=== PATIENT | male | born 1960 | race Caucasian/White ===

== ENCOUNTER 2016-02-28 07:47 | Day surgery (SDC) | payer BC ==
[2016-02-24 12:43] VITALS: BMI 29.8
[2016-02-28 10:31] VITALS: PULSE 77
[2016-02-28 11:08] VITALS: BP 131/65; TEMP 98.2
--- NOTE | 2016-03-02 15:55 | PATH ---
Surgical Pathology Report Patient Name: JUN HARGROVE [facility]. Rec. #: [id number] /Age/Gender: 1960 (Age: 56) / M Account: [id number] Location: [facility] Taken: 02/28/2016 Received: 02/28/2016 Reported: 03/02/2016 Physicians: Joi Marrero M.D. Specimen(s) Received A: BX COLON ASCENDING B: BX COLON DESCENDING C: BX RECTUM Clinical History History of polyps Diminutive polyp, polyp Final Diagnosis A. ASCENDING COLON, BIOPSY: TUBULAR ADENOMA. B. DESCENDING COLON, BIOPSY: TUBULOVILLOUS ADENOMA. C. RECTUM, BIOPSY: HYPERPLASTIC POLYP. Electronically Signed Charito Espinosa M.D. Gross Description A. Received in formalin, labeled "ascending" is a james, irregular portion of soft tissue measuring 0.3 cm. in greatest dimension. The specimen is submitted in toto in one cassette. B. Received in formalin, labeled "descending," is a 0.8 x 0.8 x 0.2 cm aggregate of james, irregular to polypoid portions of soft tissue. The formalin is filtered and the specimen is entirely submitted in one cassette. C. Received in formalin, labeled "rectum" are 5 james, irregular portions of soft tissue ranging from 0.1-0.3 cm. in greatest dimension. The specimens are submitted in toto in one cassette. 02/28/2016 saudi02/28/2016
== END 2016-02-28 10:15 | disposition home or self-care (01) ==
LOC: FASU-ENDO 07:47
PROVIDERS: ATTEND Internal Medicine
PROC: 0DBM8ZX Excision of Descending Colon, Via Natural or Artificial Opening Endoscopic, Diagnostic (ICD-10-PCS; principal; 2016-02-28 09:01)
PROC: 0DBP8ZX Excision of Rectum, Via Natural or Artificial Opening Endoscopic, Diagnostic (ICD-10-PCS; 2016-02-28 09:01)
PROC: 0DBK8ZX Excision of Ascending Colon, Via Natural or Artificial Opening Endoscopic, Diagnostic (ICD-10-PCS; 2016-02-28 09:01)
DX: Z86.010 Personal history of colon polyps (principal); D12.3 Benign neoplasm of transverse colon; D12.4 Benign neoplasm of descending colon; K62.1 Rectal polyp
CPT/HCPCS: 88305-TC

== ENCOUNTER 2018-12-13 14:27 | Emergency (ER) | payer BC ==
[2018-12-13 14:34] VITALS: TEMP 98.6; BMI 30.8
--- NOTE | 2018-12-13 14:37 | PDOC ---
History of Present Illness - General Chief Complaint: Back Pain Stated Complaint: LEFT FLANK/BACK PAIN Time Seen by Provider: 12/13/18 14:35 - History of Present Illness Initial Comments: 12/13/18 15:23 58 y/o M hx of NIDDM, anxiety, depression and kidney stones, presents to the ER with left flank pain since yesterday. He has had waxing and waning pain since yesterday which began last night. Pt states pain feels like his previous episode of kidney stones he experienced a few years ago. Rates his pain as 4/ 10 and is non-radiating. Pain was mildly relieved with ibuprofen yesterday and he experienced some chills with no fevers. He denies any dysuria, hematuria, abdominal pain/pain radiating to his groin. He denies any nausea, vomiting, diarrhea, constipation, fevers. 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) Disorders: No HTN: No Hypercholesterolemia: No Kidney Stones: Yes Liver Disease: No Seizures: No Thyroid Disease: No - Surgical History Abdominal Surgery: Yes (HERNIA OPERATION) Appendectomy: No Cardiac Surgery: No Cholecystectomy: No Lung Surgery: No Neurologic Surgery: No Orthopedic Surgery: Yes (ARTHROSCOPY Right Knee) - Psycho Social/Smoking Cessation Hx Smoking History: Former smoker Have you smoked in the past 12 months: No If you are a former smoker, when did you quit?: 10 YEARS Information on smoking cessation initiated: No Hx Alcohol Use: No Drug/Substance Use Hx: No Substance Use Type: None Hx Substance Use Treatment: No Review of Systems - Review of Systems Constitutional: Yes: Chills. No: Fever HEENTM: No: Eye Pain, Blurred Vision Respiratory: No: Cough, Shortness of Breath Cardiac (ROS): No: Chest Pain, Lightheadedness ABD/GI: No: Nausea, Vomiting : No: Burning, Dysuria, Hematuria Musculoskeletal: Yes: Back Pain. No: Joint Swelling Integumentary: No: Bruising, Change in Color Neurological: No: Headache, Numbness Psychiatric: Yes: Anxiety, Depression Hematologic/Lymphatic: No: Easy Bleeding, Easy Bruising *Physical Exam - Vital Signs Last Vital Signs Temp Pulse Resp BP Pulse Ox 98.6 F 96 H 18 172/102 H 100 12/13/18 14:27 12/13/18 14:27 12/13/18 14:27 12/13/18 14:27 12/13/18 14:27 - Physical Exam Comments: 12/13/18 14:51 PE: GENERAL: Awake, alert, and fully oriented, in no acute distress HEAD: No signs of trauma, normocephalic, atraumatic EYES: PERRLA, EOMI, sclera anicteric, conjunctiva clear ENT: Auricles normal inspection, hearing grossly normal, nares patent, oropharynx clear without exudates. Moist mucosa NECK: Normal ROM, supple, no lymphadenopathy, JVD, or masses LUNGS: No distress, speaks full sentences, clear to auscultation bilaterally HEART: Regular rate and rhythm, normal S1 and S2, no murmurs, rubs or gallops, peripheral pulses normal and equal bilaterally. ABDOMEN: Soft, nontender, normoactive bowel sounds. No guarding, no rebound. No masses no CVA tenderness EXTREMITIES : Normal inspection, Normal range of motion, no edema. No clubbing or cyanosis NEUROLOGICAL: Cranial nerves II through XII grossly intact. Normal speech, normal gait, no focal sensorimotor deficits SKIN: Warm, Dry, normal turgor, no rashes or lesions noted ED Treatment Course - LABORATORY CBC & Chemistry Diagram: 12/13/18 15:10 12/13/18 15:10 Medical Decision Making - Medical Decision Making 12/13/18 15:31 58 y/o M hx of NIDDM, anxiety, depression and kidney stones, presents to the ER with left flank pain since yesterday. cbc, cmp, ua with culture, Meds: toradol 30mg IV, normal saline 12/13/18 15:50 Labs trace blood on UA elevated creatinine 1.7 12/13/18 15:50 12/13/18 16:46 Pt feeling better after meds and fluids discharge with pcp follow up. Discharge - Discharge Information Problems reviewed: Yes Clinical Impression/Diagnosis: Left flank pain Condition: Stable Disposition: HOME - Admission No - Follow up/Referral Referrals: Danish Austin MD [Primary Care Provider] - - Patient Discharge Instructions Patient Printed Discharge Instructions: Kidney Stones -- Adult, DI for Flank Pain Additional Instructions: you were seen in the ER for left flank pain You were given medication and fluids You are being sent home with a strainer for your urine to catch any stones that might pass. if you pass a stone save in a ziploc bag and show your primary care doctor Follow up with your primary care doctor in the next few days. RETURN TO THE ER -you develop fevers or chills - burning with urination, blood in your urine - increased pain that is not relieved with ibuprofen at home -pain radiating to your groin. - Post Discharge Activity
--- NOTE | 2018-12-13 14:58 | PDOC ---
Attending Attestation - Resident Resident Name: Francis Goel - ED Attending Attestation I have performed the following: I have examined & evaluated the patient, The case was reviewed & discussed with the resident, I agree w/resident's findings & plan, Exceptions are as noted - HPI HPI: 12/13/18 14:54 58y M hx of NIDDM< anxiety, deperssion, kidney stones, presents to the ED with complaint of L flank pain since yesterday. Pain started all of a sudden last night and is waxing and waning and pt 'felt like he couldnt get comfortable'. pt notse pain was 7/10 las tnight and is now much better, approx 7/10. Pt denies any fever, dysuria, hematuria, foul smelling urine, back pain,a bd pain, testicular pain, numbness/tingling/weakness. pt notse this pain feels similar to the past when he had kidney stones. no recent falls/injuries. Physicial Exam GENERAL: The patient is awake, alert, and fully oriented, Nontoxic - in no acute distress. HEAD: Normocephalic, atraumatic. EYES: extraocular movements intact, sclera anicteric, conjunctiva clear. ENT: Normal voice, Moist mucous membranes. NECK: Normal range of motion, supple LUNGS: Breath sounds equal, clear to auscultation bilaterally. No wheezes, no rhonchi, no rales. HEART: Regular rate and rhythm, normal S1 and S2 without murmur, rub or gallop. ABDOMEN: Soft, nontender, No guarding, no rebound. No CVA tenderness EXTREMITIES: Normal range of motion, no edema. NEUROLOGICAL: No facial assymetry, Normal speech, PSYCH: Normal mood, normal affect. SKIN: Warm, Dry, normal turgor, 12/13/18 16:54 suspect kidney stones vs msk pts labs and UA reviewed no signs of UTI, trace hematuria pt feeling no pain after toradol will dc with pmd fu and a urine strainer return precuations were dsicussed
[2018-12-13] MEDS ORDERED: KETOROLAC TROMETHAMINE 30 MG/1 ML VIAL IVPUSH ONE (14:59)
[2018-12-13] MEDS ORDERED: SODIUM CHLORIDE 0.9% 500 ML INFUS.BAG IV ONE (14:59)
[2018-12-13] MEDS ORDERED: KETOROLAC TROMETHAMINE 30 MG/1 ML VIAL ONE (15:01)
[2018-12-13 15:31] LABS: BASO % 0.6 % (0-2.0); EOS % 1.3 % (0-4.5); HEMATOCRIT 42.9 % (35.4-49); HEMOGLOBIN 14.6 GM/dl (11.7-16.9); LYMPH % 18.5 % (8-40); MCH 28.2 pg (25.7-33.7); MEAN CELL VOLUME 83.1 fl (80-96); MEAN PLT VOLUME 8.1 fl (7.5-11.1); MONO % 9.2 % (3.8-10.2); NEUT % 70.4 % (42.8-82.8); PLATELET COUNT 226 K/MM3 (134-434); RBC 5.16 M/mm3 (4.00-5.60); RDW 12.5 % (11.9-15.9)
[2018-12-13 15:42] LABS: ALBUMIN 3.6 g/dl (3.4-5.0); BILIRUBIN,TOTAL 0.7 mg/dl (0.2-1); CALCIUM 8.5 mg/dl (8.5-10); CREATININE 1.7 mg/dl (0.55-1.3); POTASSIUM 4.3 mmol/L (3.5-5.1); TOT PROT 6.5 g/dl (6.4-8.2)
[2018-12-13 17:02] VITALS: BP 148/96; PULSE 78
== END 2018-12-13 16:55 | disposition home or self-care (01) ==
LOC: FER 14:27
PROC: 3E0333Z Introduction of Anti-inflammatory into Peripheral Vein, Percutaneous Approach (ICD-10-PCS; principal; 2018-12-13)
DX: R10.32 Left lower quadrant pain (principal); F41.8 Other specified anxiety disorders; E11.9 Type 2 diabetes mellitus without complications; N20.0 Calculus of kidney; Z87.891 Personal history of nicotine dependence; K92.9 Disease of digestive system, unspecified
CPT/HCPCS: 36415; 80053; 81003; 81015; 85025; 99284-25